=== PATIENT | female | born 2000 | race Hispanic/Latino ===

== ENCOUNTER 2018-03-24 01:30 | Emergency (ER) | payer OTHER, SELFPAY ==
[2018-03-24 01:45] VITALS: BP 130/74; PULSE 70; RESP 14; TEMP 36.7; O2SAT 99; BMI 23.6
--- NOTE | 2018-03-24 03:48 | ED_ITS ---
HPI - URI/Sore Throat General Chief Complaint: Upper Respiratory Symptoms Stated Complaint: Sore throat, white spots History of Present Illness HPI Narrative: HPI 17-year-old female presents for evaluation of mild throat discomfort, postnasal drip, and sinus congestion. Patient is concerned that she has strep throat. Denies rash, neck stiffness, headache, changes in vision or hearing, or ear pain. M/S/F/SocHx notable for: please see HPI; remainder reviewed with patient and in chart. ROS: Negative constitutional, eye, cardiovascular, pulmonary, GI, , MSK, skin , neurologic, psychiatric, endocrine unless noted in the HPI. Exam Gen: Pleasant, non-toxic appearing, resting comfortably. HEENT: Normocephalic, atraumatic. * Ears - TMs clear bilaterally, bilateral external auditory canals without erythema, inflammation, or swelling, bilateral mastoids nontender without overlying erythema, swelling, or warmth. * Eyes - Bilateral eyes without injection, swelling, or discharge, no proptosis or periorbital erythema, swelling, warmth, or tenderness. * Mouth - Anterior oropharynx with MMM, no lesions appreciated, floor of the mouth is soft and without swelling. Posterior oropharynx with mild erythema but without swelling, exudate, lesions, uvula midline. * Nose - Nares with scant crusting and discharge. * Neck - Neck supple without posterior anterior cervical chain lymphadenopathy bilaterally. Resp: Clear to auscultation bilaterally, normal work of breathing without accessory muscle usage.Infrequent mildly productive cough observed. Card: Regular rate and rhythm with no murmurs, rubs or gallops. Extremities warm and well perfused. GI: Non-tender to palpation throughout all quadrants, no masses or organomegaly appreciated. : Deferred MSK: No visible deformities, strength and tone without visually appreciable deficit. Neuro: AO x 3, no facial asymmetry, vision and hearing WNL. Heme/Lymph: Deferred Skin: Normal color with no visible lesions (other than noted above). Psych: Mood and affect appropriate. Labs: Rapid strep negative. MDM Previous chart, nursing note, and vitals reviewed. A: 17-year-old female presents for evaluation of mild throat discomfort, postnasal drip, and sinus congestion. DDx: viral rhinosinusitis, bacterial rhinosinusitis, pharyngitis (HSV vs viral NOS vs GAS vs bacterial NOS)], EBV, peritonsillar cellulitis, HOT STAMP OPERATOR, RPA, Capo' s angina, epiglottitis. Evaluation: Overall presentation most consistent with a viral rhinosinutisis, given the duration of symptoms and overall well compensated appearance, antibiotic treatment is not currently indicated, rapid strep not indicated, however this was ordered by nursing protocol prior to evaluation and was negative, oral mucosa without lesions consistent with HSV or candidiasis, low suspicion for peritonsillar cellulitis or abscess given the absence of asymmetric swelling or uvular deviation, RPA is unlikely as the patient can comfortably flex and extend their neck and swallow without difficulty. As phonation is intact and breathing is unlabored doubt epiglottitis. The floor of the mouth is without evidence of Capo's angina. Lemierre's disease was considered but as the patient does not have signs of HOT STAMP OPERATOR or sepsis, further evaluation was not indicated. ED Course: No clinically significant changes. Disposition: Discharge with return to care as needed. Return to care indications provided. Impression: Rhinosinusitis. (please reference below for remainder of encounter information) Related Data Allergies Allergy/AdvReac Type Severity Reaction Status Date / Time erythromycin base Allergy Unknown Verified 03/24/18 01:47 [ERYTHROMYCIN BASE] Penicillins [PENICILLINS] Allergy Unknown Verified 03/24/18 01:47 [facility] Social History Smoking Status: Current every day smoker Exam Initial Vital Signs Initial Vital Signs: Vital Signs Temperature 98.1 F 03/24/18 01:45 Pulse Rate 70 03/24/18 01:45 Respiratory Rate 14 03/24/18 01:45 Blood Pressure 130/74 H 03/24/18 01:45 Pulse Oximetry 99 03/24/18 01:45 Course Vital Signs - 8 hr 03/24/18 01:45 Temperature 98.1 F Pulse Rate 70 Respiratory Rate 14 Blood Pressure 130/74 H Pulse Oximetry 99
[2018-03-24 04:13] VITALS: BP 118/55; PULSE 72; RESP 15; O2SAT 99
== END 2018-03-24 04:14 | disposition home or self-care (01) ==
PROVIDERS: Emergency Provider Emergency Medicine; PCP Physician Assistant
DX: J32.9 Chronic sinusitis, unspecified (principal)
CPT/HCPCS: 87880; 99282

== ENCOUNTER → 2020-10-14 13:10 | Outpatient (CLI) | payer OTHER, SELFPAY ==
[2020-10-14 16:01] LABS: COVID19 -Nasal RAPID POSITIVE (Negative)
== END ==
PROVIDERS: Visit Provider Physician Assistant
DX: U07.1 COVID-19 (principal)
CPT/HCPCS: 87635

== ENCOUNTER 2022-02-03 21:14 | Emergency (ER) | payer OTHER, SELFPAY ==
[2022-02-03 21:20] VITALS: BP 142/67; PULSE 88; RESP 18; TEMP 36.8; O2SAT 100; BMI 24.3
--- NOTE | 2022-02-03 21:36 | PC.NURSE ---
intermintent LLQ groin/abd pain, has not taken meds for pain, nothing makes it better or worse, pt a/o 3/3 speaking in full sentences skin warm and dry NAD
--- NOTE | 2022-02-03 23:49 | ED.GENADULT ---
HPI - General Adult General Chief complaint: Abdominal Pain Stated complaint: abdominal pain Time Seen by Provider: 02/03/22 23:37 Source: patient Mode of arrival: Ambulatory History of Present Illness HPI narrative: 21-year-old at 9 weeks by LMP presents with left lower quadrant tenderness. She notes that she has been having tenderness for about a month and today it was significantly worse. She has not been particularly constipated with this and has otherwise been tolerating quite well. She is not reporting fevers, diarrhea, cough, palpitations, headaches, lower extremity edema. She is having no vaginal discharge and has a new OB appointment set up in the near future at would be [facility]. Related Data Allergies Allergy/AdvReac Type Severity Reaction Status Date / Time erythromycin base Allergy Unknown Verified 03/24/18 01:47 [ERYTHROMYCIN BASE] Penicillins [PENICILLINS] Allergy Unknown Verified 03/24/18 01:47 Review of Systems Review of Systems Narrative: Remainder of complete review of systems is otherwise unremarkable except for that included in the HPI. Patient History Social History Smoking Status: Current every day smoker Smoking Status: Current every day smoker alcohol intake frequency: 0-2 drinks per day Substance Use Type: does not use Exam Initial Vital Signs Initial Vital Signs: Vital Signs Temperature 98.3 F 02/03/22 21:20 Pulse Rate 88 02/03/22 21:20 Respiratory Rate 18 02/03/22 21:20 Blood Pressure 142/67 H 02/03/22 21:20 Pulse Oximetry 100 02/03/22 21:20 General: Alert appropriate in no acute distress Respiratory: Able to speak in full sentences, no obvious respiratory distress Abdomen: Positive bowel tones, mild tenderness in the left lower quadrant without rebound or guarding Skin: No obvious rashes, warm and dry Neurologic: Grossly intact no obvious asymmetries or abnormalities Psych: appropriate insight and affect, cooperative Bedside ultrasound in the emergency department: Single intrauterine fetus measuring 8 weeks 4 days with heart rate noted in the 160 range. She has no obvious ovarian cysts appreciated. Left ovary is visualized and there does appear to be good blood flow to it There is no free fluid in the pelvis She does have a moderate amount of air in her colon on the left side Course Vital Signs Vital signs: Vital Signs - 8 hr 02/03/22 21:20 Temperature 98.3 F Pulse Rate 88 Respiratory Rate 18 Blood Pressure 142/67 H Pulse Oximetry 100 Medical Decision Making MDM Narrative Medical decision making narrative: 21-year-old woman currently at 9 weeks gestational age complaining of left lower quadrant pain. Confirmed viable intrauterine fetus, no evidence of ectopic , ovarian torsion or ovarian cyst or ruptured ovarian cyst. She does not have a urinary tract infection. The tenderness in the left lower quadrant is mild there is no rebound or guarding I am not concerned about diverticulitis or other infection at this time. Urinalysis does not suggest kidney stone. At this point reassurance is given, recommended Tylenol. Brief discussion regarding increased constipation and gas while and encouraged her to do all that she needs to do to make sure she is having regular bowel movements and passing any flatus that is present. Questions are answered and she is safe for home discharge Discharge Plan Departure Patient Disposition: Home Clinical Impression: Chronic left lower quadrant pain Qualifiers: Weeks of gestation: 9 weeks Qualified Code(s): Z3A.09 - 9 weeks gestation of Instructions: DI for -- Discomforts and Remedies Activity Restrictions/Additional Instructions: Thank you for coming in tonight The bedside ultrasound that we did here in the department shows a happy viable fetus in your uterus measuring approximately 8 weeks 4 days which is consistent with your suspected 9 week . There is no evidence of an ectopic , a large cyst on her ovary on the left, there is no free fluid in your pelvis on the left side. Your exam and presentation do not suggest diverticulitis or a kidney stone to explain the pain that your having on that left side. You do not have a bladder infection At this time, I do not have a full explanation for why you are hurting however all of the life-threatening or threatening issues are not present. It is okay to use Tylenol for the pain if it is bothering you that much. Making sure that your doing all you can to avoid constipation is also important in early If your continued to have issues please feel free to return to the emergency department. I wish you luck with the rest of your Referrals: Jacquelyn Saenz ARNP [Primary Care Provider] -
[2022-02-04 00:04] VITALS: BP 114/55; PULSE 80; RESP 18; O2SAT 99
== END 2022-02-04 00:05 | disposition home or self-care (01) ==
PROVIDERS: Emergency Provider Emergency Medicine; PCP Nurse Practitioner Family
DX: O26.891 Other specified pregnancy related conditions, first trimester (principal); G89.29 Other chronic pain; R10.32 Left lower quadrant pain; Z3A.09 9 weeks gestation of pregnancy
CPT/HCPCS: 81003; 99281; 99282

== ENCOUNTER → 2022-03-14 08:34 | Outpatient (CLI) | payer OTHER, SELFPAY ==
[2022-03-14 09:56] LABS: Add Manual Diff / Slide Review NO; Basophils Absolute Auto 0 /uL (0-100); Basophils Percent Auto 0.3 % (0-2); Eosinophils Absolute Auto 200 /uL (0-450); Eosinophils Percent Auto 2.8 % (2-4); Hematocrit 36.2 % (36-46); Hemoglobin 12.5 g/dL (12.0-16.0); Lymphocytes Absolute Auto 1700 /uL (1100-4500); Lymphocytes Percent Auto 23.5 % (25-40); Mean Corpuscular HGB Conc 34.6 % (30-36); Mean Corpuscular Hemoglobin 30.8 PG (26-34); Monocytes Absolute Auto 500 /uL (0-900); Monocytes Percent Auto 6.6 % (3-14); Neutrophils Absolute Auto 4800 /uL (1500-7000); Neutrophils Percent Auto 66.8 % (50-75); Platelet Count 259 X10^3/uL (150-400); Red Blood Cell Count 4.07 X10^6/uL (4.0-5.2); Red Cell Distribution Width 13.5 % (11.6-14.8); White Blood Cell Count 7.2 X10^3/uL (4.5-11.0)
[2022-03-14 11:08] LABS: Appearance Urine UA Clear; Color Urine UA Yellow
[2022-03-14 11:09] LABS: Bilirubin Urine UA NEGATIVE (NEGATIVE); Glucose Urine UA NEGATIVE (Negative); Ketones Urine UA NEGATIVE (NEGATIVE); Nitrite Urine UA NEGATIVE (Negative); Occult Blood Urine UA TRACE-LYSED (Negative); Protein Urine UA NEGATIVE (Negative); Specific Gravity Urine UA 1.015 (1.000-1.035); Urobilinogen Urine UA 0.2 E.U./dL (0.2)
[2022-03-14 11:10] LABS: Leukocyte Esterase Urine UA TRACE (NEGATIVE)
[2022-03-14 11:28] LABS: RBC Urine None Seen (0-5/HPF); Squamous Epithelial Cell Urine 0-1 /HPF (0-5/HPF); WBC Urine 1-5/HPF (0-5/HPF)
[2022-03-14 11:29] LABS: Bacteria Urine None Seen; Culture Indicated Urine Cult Not Indicated
[2022-03-14 16:13] LABS: Hepatitis B Surface Antigen NEGATIVE s/c (NEGATIVE); Rubella Antibody IgG 7.7 IU/mL (>15)
[2022-03-14 16:20] LABS: HIV 1 & 2 Ab/Ag 4th Gen Combo NEGATIVE (NEGATIVE); Hep C Virus Ab w/Reflex Quant NEGATIVE s/c (NEGATIVE)
[2022-03-15 04:51] LABS: RPR Screen Non Reactive (Non Reactive)
[2022-03-15 07:36] LABS: Varicella IgG Antibody <135 index (Immune >165)
== END ==
PROVIDERS: PCP Nurse Practitioner Family; Referring Provider Obstetrics & Gynecology; Visit Provider Obstetrics & Gynecology
DX: Z34.00 Encounter for supervision of normal first pregnancy, unspecified trimester (principal)
CPT/HCPCS: 36415; 80055; 81003; 81015; 86787; 86803; 86850; 86900; 86901; 87086; 87389

== ENCOUNTER → 2022-04-11 08:42 | Outpatient (CLI) | payer OTHER, SELFPAY ==
[2022-04-13 20:45] LABS: AFP, Serum 27.6 ng/mL (.); Calc Gestational Age Ultrasound (.); Estriol, Free 2.33 ng/mL (.); Inhibin A, Dimeric 148.17 pg/mL (.); Inhibin A, MoM See interpretation. (.); Maternal Ethnicity Caucasian (.); Maternal Weight 173 lbs (.); Number of Fetuses No (.); OSBR Risk 1 IN 10000 (.); Test Results See interpretation. (.); hCG, MoM See interpretation. (.); hCG, Serum 21426 mIU/mL (.)
[2022-04-14 13:33] LABS: Results Report (.)
== END ==
PROVIDERS: PCP Nurse Practitioner Family; Referring Provider Obstetrics & Gynecology; Visit Provider Obstetrics & Gynecology
DX: Z34.82 Encounter for supervision of other normal pregnancy, second trimester (principal); Z3A.18 18 weeks gestation of pregnancy
CPT/HCPCS: 36415; 82105; 82677; 84702; 86336

== ENCOUNTER → 2022-04-25 12:12 | Outpatient (CLI) | payer OTHER, SELFPAY ==
--- NOTE | 2022-04-25 12:13 | DI.US.S_ITS ---
PROCEDURE: US OB >= 14 WEEKS FETUS INDICATIONS: 20 WEEK ANATOMY SCAN OUTSIDE/PRIOR DATING DATA: Last menstrual period (LMP): 12/04/2021. LMP-based estimated date of delivery (ASHLEE): 09/10/2022. First dating scan (date and location): 04/25/2022, [facility] Estimated date of delivery (ASHLEE) from first dating scan: 09/07/2022. The calculations are made using the ultrasound ASHLEE of 09/07/2022. TECHNIQUE: Real-time scanning was performed of the fetus, with image documentation and biometric measurements. Endovaginal scanning: Not performed COMPARISON: [facility], US, US OB <= 14 WEEKS FETUS, 03/14/2022, 8:25. FINDINGS: General: A single living intrauterine gestation is present. Presentation: Cephalic. Placenta: Placental position is posterior , without previa. Amniotic fluid index: 13.4 cm, normal range is 5-24 cm. Single deepest vertical pocket is 4.0 cm. heart rate: 144 beats per minute. Maternal cervical canal: 3.9 cm long. Normal lower limit is 2.5 cm. biometrics: Biparietal diameter: 4.9 cm, 20 weeks 5 days Head circumference: 17.9 cm, 20 weeks 3 days Abdominal circumference: 15 cm, 20 weeks 2 days Femur length: 3.6 cm, 21 weeks 2 days Clinically estimated gestational age: N/A Composite gestational age from present scan: 20 weeks 5 days Estimated weight and percentile: 372 g Anatomic survey: Neuro: Ventricles are non-dilated at less than 10 mm. Cisterna magna is normal at 3-11 mm. Cerebellum is normal in size and morphology. Nuchal skin fold: Normal at less than 6 mm between 14-21 weeks gestational age. Face: Nose and lips, facial profile are normal. Spine: No evidence for spina bifida. Heart: 4-chambered heart is present, with normal ventricular outflow tracts. Echogenic focus, left ventricle Diaphragm: Diaphragm is intact. Stomach: Left-sided stomach is present. Kidneys: No hydronephrosis. Normal is less than 5 mm in 2nd trimester, less than 7 mm in 3rd trimester. Cord: 3-vessel cord has orthotopic insertion. Bladder: Normal in size. Extremities: All 4 extremities identified. IMPRESSION: 1. Living 2nd trimester intrauterine measuring 20 weeks 5 days by today's ultrasound. 2. Echogenic focus in the left ventricle, usually an incidental finding. 3. Otherwise unremarkable 2nd trimester anatomy study. We strive to produce accurate, complete, and clear reports of imaging services. To assist us in improving patient care, this report was composed using standard report templates and voice recognition software. Therefore, it may contain abnormal punctuation, insertions and/or omissions. Occasional wrong-word or sound-alike substitutions may occur. Though we review the report and make efforts to correct it, we do recommend that the report be read carefully in proper context to recognize any text inaccuracies. Dictated by: Emmanuel Newton M.D. on 04/25/2022 at 17:23 Approved by: Emmanuel Newton M.D. on 04/25/2022 at 17:30
== END ==
PROVIDERS: PCP Nurse Practitioner Family; Referring Provider Obstetrics & Gynecology; Visit Provider Obstetrics & Gynecology
DX: Z34.02 Encounter for supervision of normal first pregnancy, second trimester (principal); Z3A.20 20 weeks gestation of pregnancy
CPT/HCPCS: 76811

== ENCOUNTER → 2022-06-13 10:16 | Outpatient (CLI) | payer OTHER, SELFPAY ==
--- NOTE | 2022-06-13 10:18 | DI.US.S_ITS ---
PROCEDURE: US OB FOLLOW UP INDICATIONS: Follow up for echogenic cardiac focus OUTSIDE/PRIOR DATING DATA: Last menstrual period (LMP): December 04, 2021. LMP-based estimated date of delivery (ASHLEE): September 10, 2022. First dating scan (date and location): April 25, 2022. Estimated date of delivery (ASHLEE) from first dating scan: September 07, 2022. TECHNIQUE: Real-time scanning was performed of the fetus, with image documentation and biometric measurements. COMPARISON: None. FINDINGS: General: A single living intrauterine gestation is present. Presentation: Vertex. Placenta: Placental position is posterior, without previa. Amniotic fluid index: 15.4 cm, normal range is 5-24 cm. heart rate: 147 beats per minute. Maternal cervical canal: 4.5 cm long. Normal lower limit is 2.5 cm. biometrics: Biparietal diameter: 6.9 cm, 27 weeks, 4 days Head circumference: 26.0 cm, 28 weeks, 2 days Abdominal circumference: 23.6 cm, 27 weeks, 6 days Femur length: 5.4 cm, 28 weeks, 3 days Clinically estimated gestational age: 27 weeks, 5 days Composite gestational age from present scan: 28 weeks, 0 days Estimated weight and percentile: 1177 g, 53% Other: Left echogenic cardiac focus remains. IMPRESSION: 1. Single live intrauterine gestation with a composite gestational age of 28 weeks, 0 days which is concordant with dates by initial scan. 2. Intracardiac echogenic focus is redemonstrated. We strive to produce accurate, complete, and clear reports of imaging services. To assist us in improving patient care, this report was composed using standard report templates and voice recognition software. Therefore, it may contain abnormal punctuation, insertions and/or omissions. Occasional wrong-word or sound-alike substitutions may occur. Though we review the report and make efforts to correct it, we do recommend that the report be read carefully in proper context to recognize any text inaccuracies. Dictated by: Teresa Lopez M.D. on 06/13/2022 at 12:28 Approved by: Teresa Lopez M.D. on 06/13/2022 at 12:32
[2022-06-13 13:02] LABS: Hemoglobin 11.7 g/dL (12.0-16.0)
[2022-06-14 10:01] LABS: GTT (PREG) 1 Hour PP 50gm Dose 143 mg/dL (76-139)
== END ==
PROVIDERS: Obstetrics & Gynecology; PCP Nurse Practitioner Family; Referring Provider Obstetrics & Gynecology; Visit Provider Obstetrics & Gynecology
DX: O28.3 Abnormal ultrasonic finding on antenatal screening of mother (principal); Z3A.28 28 weeks gestation of pregnancy
CPT/HCPCS: 36415; 76816; 82950; 85014; 85018

== ENCOUNTER → 2022-06-27 10:05 | Outpatient (CLI) | payer OTHER, SELFPAY ==
[2022-06-27 11:08] LABS: Glucose Fasting Gestational 77 mg/dL (76-95)
[2022-06-27 12:28] LABS: Glucose 1 Hour Gest 174 mg/dL (76-180)
[2022-06-27 13:43] LABS: Glucose 2 Hour Gest 169 mg/dL (76-155)
[2022-06-27 15:18] LABS: Glucose Tol Interp,Gestational INTERPRETATION
[2022-06-27 15:27] LABS: Glucose 3 Hour Gest 140 mg/dL (76-140)
== END ==
PROVIDERS: PCP Nurse Practitioner Family; Referring Provider Obstetrics & Gynecology; Visit Provider Obstetrics & Gynecology
DX: Z34.00 Encounter for supervision of normal first pregnancy, unspecified trimester (principal)
CPT/HCPCS: 36415; 82951; 82952

== ENCOUNTER → 2022-07-05 13:17 | Outpatient (CLI) | payer OTHER, SELFPAY ==
--- NOTE | 2022-07-05 13:19 | DIAB.GDA ---
Initial Gestational Diabetes Assessment Name: Ora Tsang Date: 07/05/22 Time: Dx: Gestational Diabetes Provider: Kunal ASHLEE: 09/10/22 Weeks: 31 Ora presents for initial visit virtually via [employer] platform. Reports strong FH of T2. Mom had GDM when with her per report and then T2 after. Endorses a lot of T2 on her maternal side of the family. Having a girl! States she struggles with protein as a vegetarian that avoids dairy and does not prefer eggs right now. Avoids dairy bc of lactose intolerance Does not like eggs right now Does not love tofu or tempeh texture Diet recall: wake 830-9a 10a: 8oz oatmilk vanilla half sweetener latte, 1 pkt oatmeal peach (30g CHO) with 1/2c frozen fruit and scoop of protein or smoothie (half harness cutter mixed berries, half banana, 2 scoops PB, a little honey, almond milk, flaxseed, min, spinach) or oats and honey granola with silk almond milk yogurt 12-1p: kind bar and fruit leather or nectarine or apricot 2-3p: 2c raisin bran crunch cereal (80-100g CHO)or smoothie with oatmilk or leftovers Sn: fruit (cutie oranges x 2) or kind bar or [employer] breakfast cookie 7-8p: frozen ravioli or soup and grilled cheese or carb balance quesadilla Beverages: water 30oz x 2.5, body armor light (18g per serving), lemonade sometimes Was really into sweets in beginning of , was having bubble tea or ice cream, less now. Anthropometrics: Ht: 5?10? Wt: 179# last OB 06/13/22 Prepregnancy wt: 160-165# Physical Activity:PA: walking 1mi walk twice per week Self-Monitoring Blood Glucose: Checking FBG and 2 hr pc. 1 elevated FBG so far and 3 elevated pc readings 1-9 pts above target. Little data to evaluate so far and plans to decrease carb intake at lunch. Date Pre Post Pre Post Pre Post HS 07/02 124 121 07/03 83 94 3hr 129 120 07/04 75 90 120 07/05 97 Diabetes Medications: None Pertinent Labs: Screen: 143 H ; OGTT: 77, 174, 169 H, 140 Nutrition Rx: Carbohydrates: Daily: 180-210g Meal: 45-60g lunch and dinner; 30g breakfast Snack: 15-30g Nutrition Diagnosis: Altered nutrition related lab value r/t GDM dx aeb recent OGTT Excessive CHO intake r/t nutrition knowledge deficit aeb diet recall at lunch and some beverage choices Physical inactivity r/t limited PA plan aeb pt report of walks 2x per week + ADLs at work Intervention: This participant was very receptive. Provided appropriate educational handouts. Discussed the following topics: GDM pathophysiology and impact of hyperglycemia on mom and baby Risk for T2DM for mom and baby in the future Ways to reduce risk T2DM Plate Method, meal timing, carb counting, pairing macronutrients and spreading out CHO for better BG management Blood glucose goals (FBG: <95 and 2 hour <120 mg/dL); importance of checking 4x per day (FBG and pc) Impact of macronutrients on blood glucose Brainstormed vegetarian proteins within her diet needs. Recommended servings for carbohydrates at meals and snacks Brainstormed appropriate meal plan based on her food preferences Role of physical activity and following provider guidelines for safety Goals: Avoid sugar beverages (try crystal light?) Have protein at each meal and snack Keep cereal to one cup Walk daily Follow-up: [facility] follow-up in two weeks Naz Ordaz RDN, LULA Certified Diabetes Care and Training Generalist T: [phone] F: [phone] [email or web address] Thank you for this referral
== END ==
PROVIDERS: PCP Nurse Practitioner Family; Referring Provider Obstetrics & Gynecology; Visit Provider Obstetrics & Gynecology
DX: O24.419 Gestational diabetes mellitus in pregnancy, unspecified control (principal); Z3A.31 31 weeks gestation of pregnancy
CPT/HCPCS: 97802

== ENCOUNTER → 2022-07-13 12:11 | Outpatient (CLI) | payer OTHER, SELFPAY | PROVIDERS: PCP Nurse Practitioner Family; Visit Provider Obstetrics & Gynecology | DX: N94.9 Unspecified condition associated with female genital organs and menstrual cycle (principal); Z34.92 Encounter for supervision of normal pregnancy, unspecified, second trimester | CPT/HCPCS: 87086 ==

== ENCOUNTER → 2022-08-05 17:24 | Outpatient (CLI) | payer OTHER, SELFPAY ==
--- NOTE | 2022-08-09 09:56 | DIAB.GDFU ---
Follow-up Gestational Diabetes Assessment Name: Ora Tsang Date: 08/05/22 Time: 208-240p Dx: Gestational Diabetes Provider: Kunal ASHLEE: 09/10/22 Weeks: 34-35 Ora presents for initial visit virtually via [employer] platform. Has had to r/s last appt. Last visit was at 31 weeks. Feels she is struggling with wanting to eat q 20 mins due to nausea. Then scared to check BG for fear of hyperglycemia Aiming for more protein: more PB, using cheese stick Avoiding lemonade Uses body armour light q other day or half (14g CHO per bottle) Drinking tea zero kcals Keeping cereal to one cup has been difficult. Trying lower carb cereals. Diet Recall: wake 830-9a 930-10a: yogurt, PB, 1/4c frozen fruit, oatmilk latte Sn: almonds or Cheese stick or kind bar 1p: subway veggie sandwich half: spinach, lettuce, tomato, pickles and peppers, cheese. Sn: cheese stick with body armor drink or fruit bar 730-8p: other half of subway sandwich; salmon, broccoli, potatoes Anthropometrics: Ht: 5?10? Wt: 187# last OB 08/01/22 Prepregnancy wt: 160-165# Physical Activity: Walking q other day (was q day ? mi) now ?-1mi (30-40 minutes) Self-Monitoring Blood Glucose: Did not have here SMBG log or meter with her. Reports: FB-80s All BG in goal One BG of 140 after eating fried rice, otherwise all in goal Checking twice per day Diabetes Medications: None Pertinent Labs: Screen: 143 H ; OGTT: 77, 174, 169 H, 140 Nutrition Rx: Carbohydrates: Daily: 180-210g Meal: 45-60g lunch and dinner; 30g breakfast Snack: 15-30g Nutrition Diagnosis: Altered nutrition related lab value r/t GDM dx aeb recent OGTT Excessive CHO intake r/t nutrition knowledge deficit aeb diet recall at lunch and some beverage choices - improved Physical inactivity r/t limited PA plan aeb pt report of walks 2x per week + ADLs at work- improved Intervention: This participant was very receptive. Provided appropriate educational handouts. Discussed the following topics: Recent blood sugar results and impact of food and hormones Review of macronutrient recommendations during Benefits, resources, and nutrition for recommendations for nutrition and physical activity recommendations for T2DM risk reduction OGTT at 6-12 weeks Checking blood sugars twice per week (goal: fasting <100 mg/dL and 2 hour pc <140 mg/dL) until 6 week check-up HgA1c q 1-3 years. Goals: Avoid sugar beverages - met Have protein at each meal and snack- met Keep cereal to one cup- improved Walk daily - met If feeling hungry and nauseated have a snack- choose proteins more often if between meal and BG check- new Can check at 1 hour prn - new OGTT - new HgA1cq 1-3 years at least 3-6 months - new Follow-up: [facility] follow-up prn Naz Ordaz RDN, LULA Certified Diabetes Care and Programming Development Project Manager T: [phone] F: [phone] [email or web address] Thank you for this referral
== END ==
PROVIDERS: PCP Nurse Practitioner Family; Referring Provider Obstetrics & Gynecology; Visit Provider Obstetrics & Gynecology
DX: O24.419 Gestational diabetes mellitus in pregnancy, unspecified control (principal); Z71.3 Dietary counseling and surveillance; Z3A.34 34 weeks gestation of pregnancy
CPT/HCPCS: 97803

== ENCOUNTER → 2022-08-15 09:40 | Outpatient (CLI) | payer OTHER, SELFPAY ==
[2022-08-15 17:45] LABS: Urine N gonorrhoeae NOT DETECTED
[2022-08-15 17:47] LABS: Urine Chlamydia NOT DETECTED
[2022-08-16 11:30] LABS: Candida species Positive (Negative); Gardnerella vaginalis Positive (Negative); Trichomoas vaginalis Negative (Negative)
[2022-08-16 14:58] LABS: Strep Grp B PCR POS for Grp B Strep
== END ==
PROVIDERS: PCP Nurse Practitioner Family; Visit Provider Obstetrics & Gynecology
DX: Z11.3 Encounter for screening for infections with a predominantly sexual mode of transmission; Z3A.36 36 weeks gestation of pregnancy; N89.8 Other specified noninflammatory disorders of vagina; O99.891 Other specified diseases and conditions complicating pregnancy
CPT/HCPCS: 87480; 87491; 87510; 87591; 87653; 87660

== ENCOUNTER → 2022-08-15 10:22 | Outpatient (CLI) | payer OTHER, SELFPAY ==
--- NOTE | 2022-08-15 10:24 | DI.US.S_ITS ---
PROCEDURE: US OB LIMITED INDICATIONS: Growth OUTSIDE/PRIOR DATING DATA: Last menstrual period (LMP): 12/04/2021 LMP-based estimated date of delivery (ASHLEE): 09/10/2022 First dating scan (date and location): 04/25/2022 Estimated date of delivery (ASHLEE) from first dating scan: 09/07/2022 TECHNIQUE: Real-time scanning was performed of the fetus, with image documentation. Endovaginal scanning: Not performed today COMPARISON: None. FINDINGS: A single living intrauterine gestation is present. Presentation: Vertex Placenta: Posterior, cervix region not well evaluated Amniotic fluid index: 11.6 cm heart rate: 147 beats per minute Maternal cervical canal: Not well seen BPD measures 36 weeks Head circumference measures 36 weeks and 6 days Abdominal circumference measures 37 weeks and 3 days Femur length measures 35 weeks and 3 days. Compazine gestational age today is 36 weeks and 3 days. This is concordant with estimated gestational age at 36 weeks and 5 days. EFW is at the 56 percentile, estimated weight is 3021 g. IMPRESSION: Appropriate interval growth and normal fluid. Living intrauterine gestation at 36 weeks and 5 days by working dates. Dictated by: James Murphy M.D. on 08/15/2022 at 17:09 Approved by: James Murphy M.D. on 08/15/2022 at 17:11
== END ==
PROVIDERS: PCP Nurse Practitioner Family; Referring Provider Obstetrics & Gynecology; Visit Provider Obstetrics & Gynecology
DX: Z34.83 Encounter for supervision of other normal pregnancy, third trimester (principal); Z3A.36 36 weeks gestation of pregnancy
CPT/HCPCS: 76815

== ENCOUNTER 2022-08-15 11:17 | Outpatient (CLI) | payer OTHER, SELFPAY | END 2022-08-15 11:50 | disposition home or self-care (01) | LOC: OB 08-18 11:04 | PROVIDERS: PCP Nurse Practitioner Family; Referring Provider Obstetrics & Gynecology; Visit Provider Obstetrics & Gynecology | DX: O24.419 Gestational diabetes mellitus in pregnancy, unspecified control (principal); Z3A.37 37 weeks gestation of pregnancy; O99.891 Other specified diseases and conditions complicating pregnancy; N89.8 Other specified noninflammatory disorders of vagina; Z11.3 Encounter for screening for infections with a predominantly sexual mode of transmission; Z3A.36 36 weeks gestation of pregnancy; Z34.83 Encounter for supervision of other normal pregnancy, third trimester | CPT/HCPCS: 59025; 76815; 87186; 87480; 87491; 87510; 87591; 87653; 87660; G0378; G0379 ==

== ENCOUNTER → 2022-08-18 09:56 | Outpatient (CLI) | payer OTHER, SELFPAY ==
[2022-08-18 10:57] LABS: Alanine Aminotransferase 13 IU/L (<35); Aspartate Aminotransferase 19 IU/L (14-36); BUN Creatinine Ratio 13.7 (6-22); Blood Urea Nitrogen 7 mg/dL (7-17); Estimated Glomerular Filt Rate > 60 mL/min (>60); Uric Acid 4.6 mg/dL (2.5-6.2)
[2022-08-18 10:59] LABS: Add Manual Diff / Slide Review NO; Basophils Absolute Auto 0 /uL (0-100); Basophils Percent Auto 0.5 % (0-2); Eosinophils Absolute Auto 100 /uL (0-450); Eosinophils Percent Auto 1.7 % (2-4); Hematocrit 30.2 % (36-46); Hemoglobin 10.1 g/dL (12.0-16.0); Lymphocytes Absolute Auto 1700 /uL (1100-4500); Lymphocytes Percent Auto 24.2 % (25-40); Mean Corpuscular HGB Conc 33.4 % (30-36); Mean Corpuscular Hemoglobin 29.2 PG (26-34); Mean Corpuscular Volume 87.5 fL (80-100); Monocytes Absolute Auto 500 /uL (0-900); Monocytes Percent Auto 7.2 % (3-14); Neutrophils Absolute Auto 4600 /uL (1500-7000); Neutrophils Percent Auto 66.4 % (50-75); Platelet Count 315 X10^3/uL (150-400); Red Blood Cell Count 3.45 X10^6/uL (4.0-5.2); Red Cell Distribution Width 13.1 % (11.6-14.8); White Blood Cell Count 6.9 X10^3/uL (4.5-11.0)
[2022-08-18 13:12] LABS: Creatinine Urine Random 37.5 mg/dL; Protein (Total) Urine Random 16 mg/dL (0-12); Protein Creatinine Ratio Urine 0.42 GRAM/24H
== END ==
PROVIDERS: PCP Nurse Practitioner Family; Referring Provider Obstetrics & Gynecology; Visit Provider Obstetrics & Gynecology
DX: O16.3 Unspecified maternal hypertension, third trimester (principal); R51.9 Headache, unspecified
CPT/HCPCS: 36415; 82565; 82570; 84156; 84450; 84460; 84520; 84550; 85025

== ENCOUNTER 2022-08-18 11:14 | Outpatient (CLI) | payer OTHER, SELFPAY ==
[2022-08-18] MEDS: OXYCODONE IR 5 MG TABLET PO (12:23)
--- NOTE | 2022-08-18 16:41 | PM.OBTRLD ---
Visit Information Visit Information Date of evaluation: 08/18/22 Primary OB Provider: Enma Syed On-call OB Provider: Enma Syed Reason for Evaluation: Yes non-stress test Comments/Additional reasons for admission: Elevated BP in office 142/90, 140/76. Persistent headache. 22 yo @ 36wk5 days brought in for preeclamptic labs due to calling with a persistent headache for 3 days despite Tylenol and then not fully relieved with half an oxycodone. She had onset of headache the day after her office visit where her BP was 112/72. She had noted onset of some mild finger edema that week. She denied any headache or other symptoms at the visit, but the next day she had onset of a persistent headache, unrelieved by Tylenol and hydration. She checked her BP with a friends BP cuff and it was normal. Headache subsequently persisted for 3rd day. I prescribed some oxycodone, but asked her to come in for preeclamptic labs. She stopped by the office for BP check as well and BP in office was 142/90, repeat 140/76. She reports 2.5 mg oxycodone x 1 dose decreased the headache to mild. She did not take the full tablet due to concern it had acetaminophen in it and she had been at the max acetaminophen dose for the day. No history of headaches outside of , no history of migraines. She denies scotomata, nausea or abdominal pain. Feeling good movement. Vital Signs Vital Signs: [facility]: 136/86, 133/72 125/74 supine. Sitting 131/84 Pulse 71 PFSH Medical History Anxiety Chronic back pain (~2015) Depression Surgical History Anesthesia History of wisdom tooth extraction (~2015) Family History (Updated 04/10/22 @ 22:11 by Ingris Saha) Mother Gestational diabetes Hyperlipidemia Grandfather Gestational diabetes Unknown Gestational diabetes Brother Hypoglycemia Grandfather History of heart disease Hyperlipidemia Hypertension Stroke Grandmother Diabetes mellitus History of heart disease Hyperlipidemia Hypertension Stroke Grandfather History of heart disease Social History marital status: unmarried,living together number of children: 0 lives independently: Yes housing: apartment pets and animals: Yes (Cat - aware Toxoplasmosis - boyfriend doing litter box) education level: college 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) current occupational exposures/hazards: Yes special jose needs: No seatbelt use: always water heater temp set < 120 deg: Yes (will check) working smoke detector in home: Yes fire extinguisher in home: Yes carbon monox detector in home: Yes firearms in home: No do you feel safe at home: Yes Smoking Status: Never smoker second hand exposure: No alcohol intake: former substance use type: does not use during the past year weight has: decreased > 10 lbs well-balanced diet: daily or most days (vegetarian, lactose intolerant) daily servings fruits/ve-4 caffeine: Yes (know 200mg limit) Type(s) of exercise: walking and irregular exercise Exam Narrative Exam Narrative: General: Well-appearing female Exam in office prior to NST: Abdomen gravid, nontender Extremities: Minimal pedal and finger edema. DTR: 2+ patellar, no clonus Evaluation Evaluation Baseline heart rate: 130 Variability: Moderate (11-25) monitor accelerations: Present Monitor Decelerations: Absent Diagnosis, Plan/Disposition Final Diagnosis (1) Elevated BP without diagnosis of hypertension: Status: Acute Plan/Disposition Plan: 36weeks 5 days, with elevated BP in the office, normal here. Persistent headache. With persistent headache though concern for gestational hypertension versus whether a prolonged headache gave her the elevated BP due to discomfort in the office. Preeclamptic serum labs normal. Await urine protein creatinine, urine sent from office. -given oxycodone 5 mg p.o. x1, with decreased over past 30 minutes and headache to mild frontal. -will discharge home and call her with the urine results later as would not currently keep her for induction with EGA 36 weeks 5 days. Follow-up in 2 days, Monday in birthing center for BP check, with NST. Discussed with her if she has repeat elevated BP, then will recommend induction of labor, or if urine protein/creat elevated. Spot urine in the office was only trace protein. Call for worsening headache, scotomata, abdominal pain or nausea, decreased movement or signs/symptoms of labor - OB Disposition: home
== END 2022-08-18 13:30 | disposition home or self-care (01) ==
LOC: OB 08-23 13:01
PROVIDERS: PCP Nurse Practitioner Family; Referring Provider Obstetrics & Gynecology; Visit Provider Obstetrics & Gynecology
DX: O26.893 Other specified pregnancy related conditions, third trimester (principal); R51.9 Headache, unspecified; R03.0 Elevated blood-pressure reading, without diagnosis of hypertension; Z3A.35 35 weeks gestation of pregnancy; O16.3 Unspecified maternal hypertension, third trimester
CPT/HCPCS: 36415; 59025; 82565; 82570; 84156; 84450; 84460; 84520; 84550; 85025; G0378; G0379

== ENCOUNTER 2022-08-19 19:10 | Inpatient (IN) | payer OTHER, SELFPAY ==
[2022-08-19] MEDS: DINOPROSTONE VAG (CERVIDIL) 10 MG VAG (20:15)
[2022-08-19 20:16] LABS: Add Manual Diff / Slide Review NO; Basophils Absolute Auto 0 /uL (0-100); Basophils Percent Auto 0.5 % (0-2); Eosinophils Absolute Auto 100 /uL (0-450); Eosinophils Percent Auto 2.1 % (2-4); Hematocrit 28.1 % (36-46); Hemoglobin 9.5 g/dL (12.0-16.0); Lymphocytes Absolute Auto 1700 /uL (1100-4500); Lymphocytes Percent Auto 24.7 % (25-40); Mean Corpuscular HGB Conc 33.8 % (30-36); Mean Corpuscular Hemoglobin 29.2 PG (26-34); Mean Corpuscular Volume 86.3 fL (80-100); Monocytes Absolute Auto 600 /uL (0-900); Monocytes Percent Auto 7.9 % (3-14); Neutrophils Absolute Auto 4600 /uL (1500-7000); Neutrophils Percent Auto 64.8 % (50-75); Platelet Count 326 X10^3/uL (150-400); Red Blood Cell Count 3.25 X10^6/uL (4.0-5.2); Red Cell Distribution Width 13.3 % (11.6-14.8); White Blood Cell Count 7.1 X10^3/uL (4.5-11.0)
[2022-08-19 20:35] LABS: COVID19 -Nasal RAPID Negative (Negative)
[2022-08-19 20:45] LABS: Alanine Aminotransferase 13 IU/L (<35); Albumin 3.2 g/dL (3.5-5.0); Albumin Globulin Ratio 0.9 (1.0-2.8); Alkaline Phosphatase 162 U/L (38-126); Aspartate Aminotransferase 19 IU/L (14-36); BUN Creatinine Ratio 12.2 (6-22); Bilirubin Total 0.2 mg/dL (0.2-1.3); Blood Urea Nitrogen 6 mg/dL (7-17); Calcium 8.4 mg/dL (8.4-10.2); Carbon Dioxide 22 mmol/L (22-32); Chloride 107 mmol/L (98-107); Estimated Glomerular Filt Rate > 60 mL/min (>60); Globulin 3.5 g/dL (1.7-4.1); Glucose 105 mg/dL (70-100); HEMOLYSIS < 15 (0-50); Potassium 3.9 mmol/L (3.4-5.1); Sodium 135 mmol/L (137-145); Total Protein 6.7 g/dL (6.3-8.2)
--- NOTE | 2022-08-19 21:13 | P.HPOB_ITS ---
OB HPI Date/Time Date of admission: 08/19/22 Date Patient Seen: 08/19/22 Time Patient Seen: 21:14 History of Present Condition Chief complaint: induction : 2 Para: 0 Estimated Date of Delivery: 09/10/22 Estimated Gestational Age (weeks): 36 Narrative: Ora Tsang is a 22 year old female admitted for induction for preeclampsia without severe features Indications Indication for induction OB: gestational HTN/pre-eclampsia History of Present care: good care, initiated at week # (8), number of visits (8) and pounds weight gain (22) Dating criteria: LMP confirmed by 1st trimester US Ultrasounds: abnormal US findings Abnormal ultrasound findings: Echogenic focus in the left ventricle Obstetrical complications: preeclampsia Medical complications: none Narrative: Patient with minimally elevated blood pressures but persistent headache, increased urine creatinine ratio at 0.472 Preadmission Labs Blood type: O (+) positive -: Antibody screen: negative, GBS status: positive, HBsAG: negative, HIV: negative and RPR/VDLR: negative -: Chlamydia screen: not detected and Gonorrhea screen: not detected -: Rubella: not immune and Varicella: not immune HCAB: negative Quad screen: Normal 1 hr GTT: 143 3 hr GTT: 1 hr (174), 2 hr (169) and 3 hr (140) Fasting blood glucose: 77 Evaluation Evaluation Baseline heart rate: 140 Variability: Moderate (11-25) monitor accelerations: Present Monitor Decelerations: Absent Contraction Frequency (minutes): 0 Category of Tracing: Reactive Status: Category l Dilation (cm): 0 Effacement (%): 0 Dilation: Closed Effacement: 0-30% station: -4 Position of cervix: posterior Consistency: firm Patel score: 0 PFSH Medical History Anxiety Chronic back pain (~2015) Depression Surgical History Anesthesia History of wisdom tooth extraction (~2015) Family History (Updated 04/10/22 @ 22:11 by Ingris Saha) Mother Gestational diabetes Hyperlipidemia Grandfather Gestational diabetes Unknown Gestational diabetes Brother Hypoglycemia Grandfather History of heart disease Hyperlipidemia Hypertension Stroke Grandmother Diabetes mellitus History of heart disease Hyperlipidemia Hypertension Stroke Grandfather History of heart disease Social History marital status: unmarried,living together number of children: 0 lives independently: Yes housing: apartment pets and animals: Yes (Cat - aware Toxoplasmosis - boyfriend doing litter box) education level: college 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) current occupational exposures/hazards: Yes special jose needs: No seatbelt use: always water heater temp set < 120 deg: Yes (will check) working smoke detector in home: Yes fire extinguisher in home: Yes carbon monox detector in home: Yes firearms in home: No do you feel safe at home: Yes Smoking Status: Never smoker second hand exposure: No alcohol intake: former substance use type: does not use during the past year weight has: decreased > 10 lbs well-balanced diet: daily or most days (vegetarian, lactose intolerant) daily servings fruits/ve-4 caffeine: Yes (know 200mg limit) Type(s) of exercise: walking and irregular exercise Meds Home Medications and Allergies Home Medications Medication Instructions Recorded Confirmed Type prenat.vits,tray,fuo-fwlz-tnebo 1 tab PO DAILY 02/14/22 08/01/22 History blood-glucose meter #1 ea 06/30/22 08/01/22 Rx lancets 30 gauge and blood glucose #100 ea 06/30/22 08/01/22 Rx strips combo pack Double Electric Breast Pump #1 ea 07/13/22 08/01/22 Rx oxycodone 5 mg tablet 5 mg PO Q6H PRN severe headache #5 08/17/22 Rx tabs Allergies Allergy/AdvReac Type Severity Reaction Status Date / Time erythromycin base Allergy Unknown Verified 08/01/22 11:27 [ERYTHROMYCIN BASE] Penicillins [PENICILLINS] Allergy Unknown Verified 08/01/22 11:27 Review of Systems Review of Systems Narrative: Patient has a mild headache that is slightly better than has been. No epigastric pain or scotomata. Good movement. No leakage of fluid. No v aginal bleeding. No contractions. OB Exam Narrative Exam Narrative: Blood pressure 131/77, pulse of 89 HEENT exam within normal limits. Lungs are clear to auscultation percussion. Heart is regular rate and rhythm no S3-S4 murmurs. Abdomen is gravid and nontender. Fetus is vertex confirmed by ultrasound with the back to the left and normal amniotic fluid volume. Extremities without edema and nontender. Normal DTRs. Objective Labs Result Diagrams: 08/19/22 19:55 08/19/22 19:55 Labs: Laboratory Results - last 24 hr 08/19/22 08/19/22 08/19/22 19:55 19:55 19:55 WBC 7.1 RBC 3.25 L Hgb 9.5 L Hct 28.1 L MCV 86.3 MCH 29.2 MCHC 33.8 RDW 13.3 Plt Count 326 Neut % (Auto) 64.8 Lymph % (Auto) 24.7 L [place] % (Auto) 7.9 Eos % (Auto) 2.1 Baso % (Auto) 0.5 Neut # (Auto) 4600 Lymph # (Auto) 1700 [place] # (Auto) 600 Eos # (Auto) 100 Baso # (Auto) 0 Sodium 135 L Potassium 3.9 Chloride 107 Carbon Dioxide 22 BUN 6 L Creatinine 0.49 L Estimated GFR > 60 BUN/Creatinine Ratio 12.2 Glucose 105 H Calcium 8.4 Total Bilirubin 0.2 AST 19 ALT 13 Alkaline Phosphatase 162 H Total Protein 6.7 Albumin 3.2 L Globulin 3.5 Albumin/Globulin Ratio 0.9 L SARS-CoV-2 (PCR) Negative Assessment and Plan Assessment and Plan Assessment and Plan narrative: 36 week 6 day primigravida with preeclampsia without severe features brought in for Cervidil induction. Time Spent with Patient Total time spent with greater than 50% in coordination of care (as documented) at patient's floor/unit and/or counseling patient:: 15-24 minutes
--- NOTE | 2022-08-19 21:20 | P.OP_ITS ---
Operative Date/Time/Diagnoses Date of procedure: 08/19/22 Time of procedure: 22:15 Pre-op diagnosis: Ovarian torsion right side Post-op diagnosis: same Procedure & Clinicians Procedure: Laparoscopy with untwisting of the ovary Same procedure as scheduled: Yes Indications: Patient with sudden onset of right lower quadrant pain and ultrasound consistent with ovarian torsion Surgeon: Karoline Huerta Click Yes if Unassisted: Yes Anesthesia Type: General Operative Notes Findings: Right ovarian tubal torsion normal uterus, left tube and ovary. Normal bowel surface. Normal liver edge. No evidence of endometriosis or scar tissue. Closure Type: primary Specimen(s): none sent Estimated Blood Loss (mL): 5 Blood products transfused: none Procedure in detail: Patient was brought to the operating room where she underwent general anesthesia and was placed in low [place] stirrups and prepped and draped in the usual sterile fashion. Pulsatile stockings were in place and functional. No antibiotics were indicated. A check system was reviewed with the staff in the room prior to beginning the case. A moistened sponge stick was placed in the vagina. The area of the umbilical incision was injected with . An incision was made with a scalpel in the varies needle was placed through the incision into the abdomen with withdrawing of the needle and allowing a droplet water to fall through the needle to confirm correct placement. 2 1/2 L of CO2 was placed in the abdomen. A 5 mm trocar was placed through the incision is the abdomen. There did not appear to be any damage with placement the trocar. Under direct visualization after air injecting the skin and making an incision 5 mm trocars were placed in the right and left lower quadrant. There was no damage to structures with placement of the trocars. The right tube and ovary were dark b lue. The torsion of the right tube and ovary was untwisted. The tube very quickly returned to normal color. The enlarged ovary was cut into in 3 places with removal of blood clot only no evidence of tumor. The ovary did have bleeding from the incisions confirming return of blood flow. The abdomen was irrigated. The CO2 was allowed escape from the abdomen and trocars removed. Skin was closed with 4-0 Monocryl. Estimated blood loss less than 5 cc. Patient went to the recovery room in stable condition. Complications: none Post-operative Condition: stable Disposition: observation Plan for aftercare: Due to the time of the procedure and the patient's living accommodations the patient will be monitored overnight and discharged in a.m. if stable.
[2022-08-19] MEDS: ZOLPIDEM 5 MG TABLET PO (21:28)
[2022-08-20] MEDS: LACTATED RINGERS 1,000 ML 100 ML IV ×2 (11:08→17:34)
[2022-08-20] MEDS: OXYTOCIN PREMIX 30 UNIT/500 ML PLAST..BAG IV (11:12)
--- NOTE | 2022-08-20 12:45 | PM.OBPNLAB ---
Date/Time Date Patient Seen: 08/20/22 Time Patient Seen: 08:30 Pain Control Pain control: tolerating well Comments: Patient denies headaches, scotomata, epigastric pain. Abdomen is soft, nontender. DTRs are normal. Pelvic Exam Dilation (cm): 0 Effacement (%): 40 station: -3 Amniotic membrane status: Intact Contractions Contractions on admission: irregular Monitor mode: External Contraction pattern: Irregular Contraction intensity: Mild Status status: Category l Heart Rate Baseline: 130 Monitor Accelerations: Present Monitor Decelerations: Absent Monitor Variability: Moderate Assessment and Plan Assessment: induction ongoing (Preeclampsia without severe features) Plan: begin patient augmentation Comments: Patient is unlikely to have success with Pitocin due to the cervix not being favorable however we will do Pitocin throughout the day and repeat Cervidil tonight if she is not in active labor.
--- NOTE | 2022-08-20 16:53 | PM.OBPNLAB ---
Date/Time Date Patient Seen: 08/20/22 Time Patient Seen: 16:53 Pain Control Pain control: tolerating well Pelvic Exam Dilation (cm): 3 Effacement (%): 80 station: -1 Amniotic membrane status: Intact Comments: Blood pressure 118/76, temperature 36.8? Contractions Contractions on admission: regular Monitor mode: External Pitocin rate (mU/min): 10 Contraction frequency (min): 3 Contraction duration (min): 1 Contraction pattern: Regular Contraction intensity: Moderate Status status: Category l Heart Rate Baseline: 130 Monitor Accelerations: Present Monitor Decelerations: Absent Monitor Variability: Moderate Assessment and Plan Assessment: induction ongoing Plan: continuous present management
[2022-08-20] MEDS: CLINDAMYCIN 900 MG/50 ML PIGGYBACK 50 MG IV (17:34)
--- NOTE | 2022-08-20 19:29 | PM.OBPNLAB ---
Date/Time Date Patient Seen: 08/20/22 Time Patient Seen: 19:30 Pain Control Pain control: tolerating well Pelvic Exam Dilation (cm): 3 Effacement (%): 80 station: 0 Amniotic membrane status: Ruptured (Artificial rupture) Contractions Contractions on admission: irregular Monitor mode: External Pitocin rate (mU/min): 12 Contraction frequency (min): 3 Contraction pattern: Regular Contraction intensity: Moderate Status status: Category l Heart Rate Baseline: 140 Monitor Accelerations: Present Monitor Decelerations: Absent Monitor Variability: Moderate Assessment and Plan Assessment: induction ongoing Plan: continuous present management (Patient was ruptured)
[2022-08-20] MEDS: fentaNYL 100 MCG/2 ML INJ IV (19:56)
[2022-08-21] MEDS: CLINDAMYCIN 900 MG/50 ML PIGGYBACK 50 MG IV (01:53)
--- NOTE | 2022-08-21 03:08 | P.PCNOB_ITS ---
Events: Pre-Eclampsia (Without severe features) Labor & Delivery Delivery date: 08/21/22 Intrapartal Events: None Cervical ripening method: per Cervidil protocol Induction method: per pitocin protocol Delivery augmentation: rupture of membranes Delivery monitor: external FHT and external uterine Route of delivery: L&D Laceration Description: Perineal - 1st Degree Delivery repair: chromic (3-0) Estimated blood loss (mL): 100 Quantitative Blood Loss: 100 Anesthesia Type: Epidural Narrative: Patient was admitted to Labor and delivery for induction for headache and elevated protein creatinine ratio but no other signs or symptoms of preeclampsia. She received Cervidil for cervical ripening. She was started on Pitocin and was AROM for clear fluid when in active labor. She received an epidural catheter for pain control. However the pain control was not well achieved with the epidural. The heart tones were category 1 to category 2 throughout labor. She had a spontaneous vaginal delivery over an intact perineum. The viable female infant was placed on maternal abdomen. After the cord stopped pulsating the cord was clamped, cut, and cord bloods obtained. Bradly hdez delivered spontaneously, intact, with 3 vessels. There were no cervical or vaginal tears. A first-degree midline perineal tear was repaired with 3-0 chromic suture in the usual 2 layer fashion. Both infant mother doing well. Sanders Baby 1: Infant gender: Female Presentation: vertex Position: Right Occiput Anterior Placenta delivery description: Spontaneous Cord Vessel Description: 3 Vessels score (1 min): 8 score (5 min): 9 weight: 7 lb Plan for aftercare: Routine care
[2022-08-21] MEDS: DERMOPLAST SPRAY 20% 60 ML 1 SPRAY TOP (04:45)
[2022-08-21] MEDS: IBUPROFEN 600 MG TABLET PO ×2 (04:45→20:12)
[2022-08-21] MEDS: ACETAMINOPHEN 325 MG TABLET 650 MG PO (04:45)
[2022-08-21 06:49] LABS: Add Manual Diff / Slide Review NO; Basophils Absolute Auto 0 /uL (0-100); Basophils Percent Auto 0.2 % (0-2); Eosinophils Absolute Auto 0 /uL (0-450); Hematocrit 26.8 % (36-46); Hemoglobin 9.2 g/dL (12.0-16.0); Lymphocytes Absolute Auto 1000 /uL (1100-4500); Lymphocytes Percent Auto 6.4 % (25-40); Mean Corpuscular HGB Conc 34.3 % (30-36); Mean Corpuscular Hemoglobin 29.1 PG (26-34); Mean Corpuscular Volume 84.9 fL (80-100); Monocytes Absolute Auto 1100 /uL (0-900); Monocytes Percent Auto 6.6 % (3-14); Neutrophils Absolute Auto 13700 /uL (1500-7000); Neutrophils Percent Auto 86.8 % (50-75); Platelet Count 306 X10^3/uL (150-400); Red Blood Cell Count 3.16 X10^6/uL (4.0-5.2); Red Cell Distribution Width 13.3 % (11.6-14.8); White Blood Cell Count 15.8 X10^3/uL (4.5-11.0)
[2022-08-21 06:59] LABS: Alanine Aminotransferase 12 IU/L (<35); Albumin 2.8 g/dL (3.5-5.0); Albumin Globulin Ratio 0.8 (1.0-2.8); Alkaline Phosphatase 151 U/L (38-126); Aspartate Aminotransferase 24 IU/L (14-36); Bilirubin Total 0.3 mg/dL (0.2-1.3); Bilirubin Unconjugated 0.4 mg/dL (0.0-1.1); Globulin 3.3 g/dL (1.7-4.1); HEMOLYSIS < 15 (0-50); Total Protein 6.1 g/dL (6.3-8.2)
--- NOTE | 2022-08-21 11:21 | PM.OBPN.1 ---
Subjective - OB Subjective Patient comments: no complaints Wever baby status: doing well feeding status: exclusively breast feeding Date Patient Seen: 08/21/22 Time Patient Seen: 11:22 Interval history: Patient denies headaches, scotomata, epigastric pain. Exam Vital Signs (past 8 hours): Blood pressure 121/66, pulse 74, temperature 36.9? Narrative Exam Narrative: Abdomen is soft, nontender. Uterus is firm, at U, nontender. Mild lochia. Extremities without edema and nontender. Normal DTRs. Objective Labs Result Diagrams: 08/21/22 06:35 08/19/22 19:55 Labs: Laboratory Results - last 24 hr 08/21/22 08/21/22 06:35 06:35 WBC 15.8 H D RBC 3.16 L Hgb 9.2 L Hct 26.8 L MCV 84.9 MCH 29.1 MCHC 34.3 RDW 13.3 Plt Count 306 Neut % (Auto) 86.8 H D Lymph % (Auto) 6.4 L [place] % (Auto) 6.6 Eos % (Auto) 0.0 L Baso % (Auto) 0.2 Neut # (Auto) 79966 H Lymph # (Auto) 1000 L [place] # (Auto) 1100 H Eos # (Auto) 0 Baso # (Auto) 0 Total Bilirubin 0.3 Conjugated Bilirubin 0.0 Unconjugated Bilirubin 0.4 AST 24 ALT 12 Alkaline Phosphatase 151 H Total Protein 6.1 L Albumin 2.8 L Globulin 3.3 Albumin/Globulin Ratio 0.8 L Assessment & Plan Assessment and Plan (1) Vaginal delivery: Status: Acute (2) Preeclampsia: Status: Acute Plan day: 0 plan OB: routine care Comments: Continue to monitor for signs or symptoms of preeclampsia however platelet count and LFTs are normal this a.m. and the patient's blood pressure is good with no signs or symptoms of preeclampsia. Time Spent With Patient Time: Total time spent is greater than 50% in coordination of care (as documented) at patient's floor/unit and/or counseling patient: Time with patient: less than 15 minutes
[2022-08-22 06:10] LABS: Add Manual Diff / Slide Review NO; Basophils Absolute Auto 100 /uL (0-100); Basophils Percent Auto 0.7 % (0-2); Eosinophils Absolute Auto 200 /uL (0-450); Eosinophils Percent Auto 1.9 % (2-4); Hematocrit 25.3 % (36-46); Hemoglobin 8.6 g/dL (12.0-16.0); Lymphocytes Absolute Auto 2900 /uL (1100-4500); Lymphocytes Percent Auto 30.4 % (25-40); Mean Corpuscular HGB Conc 33.9 % (30-36); Mean Corpuscular Hemoglobin 29.2 PG (26-34); Mean Corpuscular Volume 86.2 fL (80-100); Monocytes Absolute Auto 600 /uL (0-900); Monocytes Percent Auto 6.2 % (3-14); Neutrophils Absolute Auto 5900 /uL (1500-7000); Neutrophils Percent Auto 60.8 % (50-75); Platelet Count 302 X10^3/uL (150-400); Red Blood Cell Count 2.93 X10^6/uL (4.0-5.2); Red Cell Distribution Width 13.4 % (11.6-14.8); White Blood Cell Count 9.7 X10^3/uL (4.5-11.0)
[2022-08-22] MEDS: FERROUS SULFATE 325 MG TABLET PO (09:03)
[2022-08-22] MEDS: ACETAMINOPHEN 325 MG TABLET 650 MG PO (09:03)
[2022-08-22] MEDS: IBUPROFEN 600 MG TABLET PO (09:04)
[2022-08-22] MEDS: PRENATAL VIT,CALC/IRON/FOLIC 1 TABLET 1 TAB PO (09:04)
[2022-08-22] MEDS: DOCUSATE 100 MG CAPSULE PO (09:04)
--- NOTE | 2022-08-22 09:36 | P.DS_ITS ---
Discharge Providers Provider Date of admission: 08/19/22 19:10 Discharge Date: 08/22/22 Primary care physician: ELIAS Early Consults: 08/19/22 19:21 Consult to Anesthesiology Urgent Comment: Consulting Provider: Anesthesiologist Reason for consultation: Epidural Has provider been notified: No 08/22/22 03:05 Consult to Residential Assistant Routine Comment: Discharge provider: Kraoline Huerta MD Summary Hospital Course Date Patient Seen: 08/22/22 Time Patient Seen: 09:36 Diagnoses: 37 week gestation with preeclampsia without severe features with induction and spontaneous vaginal delivery Hospital Course: Patient arrived on Labor and delivery for induction for preeclampsia without severe features. She received Cytotec followed by Pitocin. She had an epidural catheter for pain control. She had a spontaneous vaginal delivery with repair of a first-degree perineal tear. Patient is ambulatory. She has minimal pain. She continues to have a mild headache but no scotomata or epigastric pain. She is urinating well. Peripartum Data Infant Delivery Method: Natural Vaginal Laceration Description: Perineal - 1st Degree Procedures: Cytotec and Pitocin induction, epidural catheter, spontaneous vaginal delivery, repair of first-degree tear complications: none 1: Gender: Female Disposition of : home Discharge Diagnosis (1) Vaginal delivery: Status: Acute (2) Preeclampsia: Status: Acute Status at Discharge Cognitive/behavioral status at discharge: oriented Functional status at discharge: independent ambulation Overall status at discharge: patient is progressing back to baseline Time Spent with Patient Time attestation: Total time spent providing and/or coordinating discharge services: Objective Labs Result Diagrams: 08/22/22 05:54 08/19/22 19:55 Labs: Laboratory Results - last 24 hr 08/22/22 05:54 WBC 9.7 RBC 2.93 L Hgb 8.6 L Hct 25.3 L MCV 86.2 MCH 29.2 MCHC 33.9 RDW 13.4 Plt Count 302 Neut % (Auto) 60.8 D Lymph % (Auto) 30.4 D [place] % (Auto) 6.2 Eos % (Auto) 1.9 L Baso % (Auto) 0.7 Neut # (Auto) 5900 Lymph # (Auto) 2900 [place] # (Auto) 600 Eos # (Auto) 200 Baso # (Auto) 100 Exam Vital Signs (past 8 hours): Blood pressure 134/76 which is almost highest blood pressure since she is been hospitalized. Pulse of 84, temperature 98? Narrative Exam Narrative: Patient's abdomen is soft, nontender. Uterus is firm, U-1, nontender. Repair is intact. Extremities with trace edema and nontender. Discharge Plan Discharge Plan Patient Disposition: Home Provider Discharge Comment: Patient is to get [id number] iron and stool softener to treat anemia. Discharge orders & Medications Prescriptions: Continued prenat.vits,tray,nte-[id number] Tablet 1 tab PO DAILY Discontinued oxycodone 5 mg tablet 5 mg PO Q6H PRN (Reason: severe headache) Qty: 5 0RF No Action (DME) blood-glucose meter Misc See Rx Instructions .MEDSUPPLY Qty: 1 0RF Rx Instructions: Use to check blood sugar 4 times daily as directed and record on log sheet (DME) lancets-blood glucose strips 30 gauge combo pack See Rx Instructions .MEDSUPPLY Qty: 100 2RF Rx Instructions: Use to check blood sugar 4 times daily as directed and record on log sheet (DME) Double Electric Breast Pump See Rx Instructions .Route .MEDSUPPLY Qty: 1 0RF Rx Instructions: pump and supplies Follow up/Referrals: Enma Syed MD [Physician] - 1 Week (Follow-up preeclampsia) Jacquelyn Saenz ARNP [Primary Care Provider] - Diet/Activity/Treatments Diet: Regular Activity: Nothing in vagina for 6 weeks Skin/Wound/Dressing Care Report to your healthcare provider any signs of infection, such as:: chills, fever and increased pain Discharge Data Primary Care Provider: Jacquelyn Saenz
== END 2022-08-22 14:30 | disposition home or self-care (01) | DRG 807 ==
PROVIDERS: Obstetrics & Gynecology; Admitting Provider Specialist; PCP Nurse Practitioner Family; Referring Provider Specialist; Visit Provider Specialist
DX: O14.04 Mild to moderate pre-eclampsia, complicating childbirth (principal); Z37.0 Single live birth; Z3A.36 36 weeks gestation of pregnancy; O70.0 First degree perineal laceration during delivery; O99.824 Streptococcus B carrier state complicating childbirth; O76 Abnormality in fetal heart rate and rhythm complicating labor and delivery; Z20.822 Contact with and (suspected) exposure to COVID-19
CPT/HCPCS: 01967; 36415; 59050; 59400; 59409; 80053; 80076; 85025; 86850; 86900; 86901; 87635; C9803; G0379; J2590; J3010

== ENCOUNTER 2023-11-07 18:31 | Emergency (ER) | payer OTHER, SELFPAY ==
[2023-11-07 18:39] VITALS: BP 123/77; PULSE 82; RESP 18; TEMP 37.1; O2SAT 98; BMI 24.3
[2023-11-07 19:13] LABS: Bacteria Urine Few (2-10); RBC Urine 1-5/HPF (0-5/HPF); Squamous Epithelial Cell Urine 0-1 /HPF (0-5/HPF); WBC Urine 5-10/HPF (0-5/HPF)
[2023-11-07] MEDS: cephALEXin 250 MG CAPSULE 500 MG PO (20:16)
[2023-11-07 20:18] VITALS: BP 122/68; PULSE 69; RESP 16; O2SAT 100
--- NOTE | 2023-11-08 04:04 | ED_ITS ---
HPI - Female Genitourinary General Chief complaint: Urogenital-Female Stated complaint: URINARY ISSUE Time Seen by Provider: 11/07/23 18:55 Source: patient Mode of arrival: Ambulatory History of Present Illness HPI Narrative: This is a 23-year-old female who is previously healthy with 1 day of dysuria and hematuria. Hematuria has been mild, she has not had any flank pain nausea vomiting or fevers. No previous urinary tract infections. Related Data Home Medications Medication Instructions Recorded Confirmed prenat.vits,tray,[id number] 1 tab PO DAILY 02/14/22 10/27/22 Previous Rx's Medication Instructions Recorded blood-glucose meter #1 ea 06/30/22 lancets 30 gauge and blood glucose #100 ea 06/30/22 strips combo pack Double Electric Breast Pump #1 ea 07/13/22 cephalexin 500 mg capsule 500 mg PO QID #20 caps 11/07/23 Allergies Allergy/AdvReac Type Severity Reaction Status Date / Time erythromycin base Allergy Unknown Verified 10/27/22 09:27 [ERYTHROMYCIN BASE] Penicillins [PENICILLINS] Allergy Unknown Verified 10/27/22 09:27 Patient History Medical History (Updated 11/08/23 @ 04:06 by William Munguia MD) H/O pre-eclampsia Chronic back pain (~2015) Anxiety Depression Scabies Surgical History Anesthesia History of wisdom tooth extraction (~2015) Family History Mother Gestational diabetes Hyperlipidemia Grandfather Gestational diabetes Unknown Gestational diabetes Brother Hypoglycemia Grandfather History of heart disease Hyperlipidemia Hypertension Stroke Grandmother Diabetes mellitus History of heart disease Hyperlipidemia Hypertension Stroke Grandfather History of heart disease alcohol intake frequency: 0-2 drinks per day Substance Use Type: does not use Exam Initial Vital Signs Initial Vital Signs: Vital Signs Temperature 98.8 F 11/07/23 18:39 Pulse Rate 82 11/07/23 18:39 Respiratory Rate 18 11/07/23 18:39 Blood Pressure 123/77 11/07/23 18:39 Pulse Oximetry 98 11/07/23 18:39 Oxygen Delivery Method Room Air 11/07/23 18:39 Const General: No acute distress Resp Effort & Inspection: normal respiratory effort Auscultation: clear to auscultation bilaterally Cardio Other: Regular rhythm and rate, not tachycardic GI Other: Abdomen is soft nontender without CVAT Neuro General: patient alert, patient awake and patient oriented x3 Course Orders Ordered: Discontinued Medications Cephalexin HCl (Cephalexin 250 Mg Capsule) 500 mg PO NOW ONE Stop: 11/07/23 20:10 Last Admin: 11/07/23 20:16 Dose: 500 mg Documented By: FAUSTINA Vital Signs Vital signs: Vital Signs - 8 hr 11/07/23 20:18 Pulse Rate 69 Respiratory Rate 16 Blood Pressure 122/68 Pulse Oximetry 100 Oxygen Delivery Method Room Air MDM - Female Genitourinary Lab Data Lab results narrative: test is negative, urinalysis has pyuria and a few bacteria consistent with infection Labs: Lab Results 11/07/23 Range/Units 18:47 Urine RBC 1-5/hpf (0-5/HPF) Urine WBC 5-10/hpf H (0-5/HPF) Ur Squamous Epith Cells 0-1 /hpf (0-5/HPF) Urine Bacteria Few (2-10) H (None) Point of Care Testing Test Results Negative Urine Dip Bedside Urine Glucose Negative Bedside Urine Bilirubin - Negative Bedside Urine Ketone - Negative Urine Specific [place] 1.010 Bedside Urine Occult Blood + Bedside Urine pH 7.5 Bedside Urine Protein - Negative Bedside Urine Urobilinogen - Negative Bedside Urine Nitrite - Negative Bedside Urine Leukocytes - Negative Esterase [facility] Narrative Medical decision making narrative: Well-appearing female with urinary tract infection symptoms. Presentation does not suggest pyelonephritis. She has not . Started on Keflex here and was cultured she is discharged home Discharge Plan Departure Patient Disposition: Home Clinical Impression: Urinary tract infection Qualifiers: Urinary tract infection type: acute cystitis Hematuria presence: with hematuria Qualified Code(s): N30.01 - Acute cystitis with hematuria Instructions: DI for Urinary Tract Infection (UTI) Activity Restrictions/Additional Instructions: Were treated today for a bladder infection. I have started an antibiotic, take this for the full prescription. If you are having fevers flank pain or frequent vomiting recheck in the emergency department. Prescriptions: New cephalexin 500 mg capsule 500 mg PO QID Qty: 20 0RF No Action (DME) blood-glucose meter Misc See Rx Instructions .MEDSUPPLY Qty: 1 0RF Rx Instructions: Use to check blood sugar 4 times daily as directed and record on log sheet (DME) lancets-blood glucose strips 30 gauge combo pack See Rx Instructions .MEDSUPPLY Qty: 100 2RF Rx Instructions: Use to check blood sugar 4 times daily as directed and record on log sheet prenat.vits,tray,[id number] Tablet 1 tab PO DAILY (DME) Double Electric Breast Pump See Rx Instructions .Route .MEDSUPPLY Qty: 1 0RF Rx Instructions: pump and supplies Referrals: Jacquelyn Saenz ARNP [Primary Care Provider] - Stand Alone Forms: Patient Portal/API
== END 2023-11-07 20:19 | disposition home or self-care (01) ==
PROVIDERS: Emergency Provider Emergency Medicine; PCP Nurse Practitioner Family
DX: N30.01 Acute cystitis with hematuria (principal)
CPT/HCPCS: 81003; 81015; 81025; 87086; 99283

== ENCOUNTER → 2025-07-18 07:09 | Outpatient (CLI) | payer BC, SELFPAY ==
[2025-07-18 09:13] LABS: Cholesterol 171 mg/dL (140-199); HDL Cholesterol 59 mg/dL (40-60); Triglycerides 77 mg/dL (35-150)
[2025-07-18 09:57] LABS: Add Manual Diff / Slide Review NO; Hematocrit 40.5 % (36-46); Hemoglobin 14.1 g/dL (12.0-16.0); Lymphocytes Absolute Auto 2000 /uL (1100-4500); Mean Corpuscular HGB Conc 34.8 % (30-36); Mean Corpuscular Hemoglobin 31.7 PG (26-34); Mean Corpuscular Volume 91.2 fL (80-100); Platelet Count 280 X10^3/uL (150-400)
[2025-07-18 10:30] LABS: Hemoglobin A1C% w Est Avg Glu 5.1 % (4.0-6.0)
== END ==
PROVIDERS: PCP Family Medicine; Referring Provider Family Medicine; Visit Provider Family Medicine
DX: Z13.220 Encounter for screening for lipoid disorders (principal); Z13.1 Encounter for screening for diabetes mellitus; D64.9 Anemia, unspecified
CPT/HCPCS: 36415; 80061; 83036; 85025

== ENCOUNTER → 2025-07-29 06:53 | Outpatient (CLI) | payer BC, SELFPAY ==
--- NOTE | 2025-07-29 06:54 | DI.US.S_ITS ---
PROCEDURE: US PELVIC COMPLETE INDICATIONS: PAIN; CHECK IUD PLACEMENT TECHNIQUE: Real-time scanning was performed of the pelvic organs, with image documentation. Additional endovaginal scanning was necessary due to incomplete visualization of the adnexal and endometrial structures by transabdominal scanning. COMPARISON: None. FINDINGS: Uterus: Uterus is anteverted and normal in size at 8.8 x 3.9 x 6.3 cm. The myometrium is homogeneous. The endometrium measures 6 mm combined thickness. Intrauterine device appears in appropriate position. Ovaries: The right ovary measures 5.1 x 6.4 x 4.8 cm, with a calculated ovarian volume of 68.7 cc. Complex right ovarian cyst measuring 4.8 x 4.4 x 4.2 centimeters with internal echoes. The left ovary measures 3.5 x 3.4 x 1.3 cm, with a calculated ovarian volume of 8.3 cc. Collapsing left ovarian cyst measuring 2.3 x 0.7 x 1.7 centimeters. Less than 12 follicles can be seen in each ovary. No adnexal masses are seen. Other: No pathologic free abdominal or pelvic fluid. IMPRESSION: Complex left ovarian cyst measuring up to 4.8 centimeters with internal echoes. Differential includes hemorrhagic cyst and endometrioma. Recommend follow-up ultrasound in 6-12 weeks. Intrauterine device appears in appropriate position. Collapsing left ovarian cyst measuring 2.3 centimeters. We strive to produce accurate, complete, and clear reports of imaging services. To assist us in improving patient care, this report was composed using standard report templates and voice recognition software. Therefore, it may contain abnormal punctuation, insertions and/or omissions. Occasional wrong-word or sound-alike substitutions may occur. Though we review the report and make efforts to correct it, we do recommend that the report be read carefully in proper context to recognize any text inaccuracies. Dictated by: Alexandro Leach M.D. on 07/29/2025 at 8:40 Approved by: Alexandro Leach M.D. on 07/29/2025 at 8:45
== END ==
PROVIDERS: PCP Family Medicine; Referring Provider Family Medicine; Visit Provider Family Medicine
DX: N83.291 Other ovarian cyst, right side (principal); N83.202 Unspecified ovarian cyst, left side; R10.2 Pelvic and perineal pain; Z97.5 Presence of (intrauterine) contraceptive device
CPT/HCPCS: 76830; 76856; 93975

== ENCOUNTER → 2025-09-10 11:01 | Outpatient (CLI) | payer BC, SELFPAY ==
[2025-09-10 12:07] LABS: Hematocrit 42.9 % (36-46); Hemoglobin 14.7 g/dL (12.0-16.0); Mean Corpuscular HGB Conc 34.2 % (30-36); Mean Corpuscular Hemoglobin 30.9 PG (26-34); Mean Corpuscular Volume 90.5 fL (80-100); Platelet Count 335 X10^3/uL (150-400)
== END ==
PROVIDERS: PCP Family Medicine; Referring Provider Family Medicine; Visit Provider Family Medicine
DX: R10.9 Unspecified abdominal pain (principal)
CPT/HCPCS: 36415; 85027